=== PATIENT | female | born 1965 | race Two or more races ===

== ENCOUNTER 2022-06-07 06:00 | Day surgery (SDC) | payer OTHER ==
[~2022-06-07] VITALS: Ht 162.6 cm; Wt 49.4 kg
[2022-06-07] MEDS ORDERED: PERCOCET 5-3251 EACH PO (10:26)
== END 2022-06-07 13:10 | disposition home or self-care (01) ==
LOC: CIR.AMB 06:00
PROVIDERS: ATTEND Surgery
DX: D34 Benign neoplasm of thyroid gland (principal); D35.1 Benign neoplasm of parathyroid gland; E04.1 Nontoxic single thyroid nodule; R59.0 Localized enlarged lymph nodes; Z88.1 Allergy status to other antibiotic agents; Z20.822 Contact with and (suspected) exposure to COVID-19